=== PATIENT | female | born 1965 | race Hispanic/Latino ===

== ENCOUNTER 2017-09-26 14:56 | Emergency (ER) | payer SELFPAY ==
[2017-09-26 15:22] LABS: #Eosinphils 0.3 thou/uL (0.0-0.7); #Lymphocytes 2.1 thou/uL (1.20-3.40); #Monocytes 0.7 thou/uL (0.11-0.59); #Neutrophils 7.2 thou/uL (1.40-6.50); %Basophils 0.5 % (0.0-1.0); %Eosinophils 2.7 % (0.0-10.0); %Lymphocytes 20.2 % (21.0-51.0); %Monocytes 6.5 % (0.0-10.0); Hematocrit 49.4 % (36.0-47.0); Mean Platelet Volume 8.4 fL (7.4-10.4); Red Blood Cell (RBC) Count 5.33 mill/uL (4.20-5.40); White Blood Cell (WBC) Count 10.2 thou/uL (4.8-10.8)
[2017-09-26 15:34] LABS: ALT (SGPT) 36 U/L (8-55); AST (SGOT) 29 U/L (5-34); Alkaline Phosphatase 99 U/L (40-150); Anion Gap 13 mmol/L (10-20); BUN (Urea Nitrogen) 17 mg/dL (9.8-20.1); Bilirubin, Total 0.8 mg/dL (0.2-1.2); CK (CPK) 159 U/L (29-168); Calc. Creatinine Clearance 0 mL/min (70-130); Calcium 9.4 mg/dL (7.8-10.44); Carbon Dioxide 26 mmol/L (22-29); Chloride 105 mmol/L (98-107); Estimated GFR-MDRD 85; Globulin 3.4 g/dL (2.4-3.5); Protein, Total 7.4 g/dL (6.0-8.3)
[2017-09-26 15:37] LABS: Troponin I Less than 0.010 ng/mL (< 0.028)
--- NOTE | 2017-09-26 15:52 | RAD ---
PORTABLE UPRIGHT FRONTAL CHEST RADIOGRAPH: Date: 09-26-17 Comparison: 10-16-14 History: Epigastric pain and chest pain. FINDINGS: Lungs are clear. Heart and mediastinal contours are unremarkable. There is elevation of the right hem idiaphragm. IMPRESSION: No acute findings. POS: [facility]
[2017-09-26] MEDS ORDERED: Famotidine/PF 20 mg/2ml Vial ONE (16:07)
[2017-09-26] MEDS ORDERED: Mag-Al 1200 mg/1200 mg/30 ML UDCUP ONE (16:07)
[2017-09-26] MEDS ORDERED: Lidocaine Viscous Sol 2% 15 ml UD Cup ONE (16:07)
[2017-09-26] MEDS ORDERED: Ondansetron HCl/PF 4 MG/2 ML Vial ONE (17:39)
== END 2017-09-26 19:10 | disposition home or self-care (01) ==
LOC: ERS 14:56
DX: R11.2 Nausea with vomiting, unspecified (principal); R19.7 Diarrhea, unspecified; K21.9 Gastro-esophageal reflux disease without esophagitis; G51.0 Bell's palsy
CPT/HCPCS: 71010; 80053; 82550; 82553; 83690; 84484; 85025; 93005; 94760; 96361; 96372; 96374; 96375; J2405; S0028

== ENCOUNTER 2018-05-17 11:06 | Emergency (ER) | payer SELFPAY ==
--- NOTE | 2018-05-17 11:37 | RAD ---
ONE VIEW CHEST: History: Epigastric pain. Vomiting and heartburn. Comparison: 09-26-17 FINDINGS: One view chest. Normal cardiac silhouette. Lungs and pleural spaces are clear. No pneumothorax or oss eous abnormalities. IMPRESSION: No acute cardiopulmonary process. POS: [facility]
[2018-05-17 11:42] LABS: #Basophils 0.1 thou/uL (0.0-0.2); #Eosinphils 0.3 thou/uL (0.0-0.7); #Lymphocytes 2.5 thou/uL (1.20-3.40); #Monocytes 0.6 thou/uL (0.11-0.59); #Neutrophils 6.2 thou/uL (1.40-6.50); %Basophils 0.7 % (0.0-1.0); %Eosinophils 3.3 % (0.0-10.0); %Lymphocytes 25.6 % (21.0-51.0); %Monocytes 5.7 % (0.0-10.0); %Neutrophils 64.6 % (42.0-75.0); Mean Corpuscular HGB CONC 32.6 g/dL (32.0-36.0); Mean Corpuscular Hemoglobin 28.8 pg (27.0-31.0); Mean Corpuscular Volume 88.4 fL (78.0-98.0); Mean Platelet Volume 8.8 fL (7.4-10.4); Platelet Count 216 thou/uL (130-400); RBC Distribution Width 11.7 % (11.5-14.5); Red Blood Cell (RBC) Count 5.22 mill/uL (4.20-5.40); White Blood Cell (WBC) Count 9.6 thou/uL (4.8-10.8)
[2018-05-17 11:52] LABS: Bilirubin Negative (Negative); Blood, Urine Trace (Negative); Glucose, Urine (Dipstick) Negative (Negative); Leukocyte Negative (Negative); Nitrite Negative (Negative); Protein, Urine (Dipstick) Negative (Neg-Trace); Urobilinogen 0.2 mg/dL (0.2-1.0)
[2018-05-17 11:56] LABS: Clarity CLEAR (Clear); Specific Gravity, Urine 1.004 (1.002-1.036)
[2018-05-17 12:07] LABS: Bacteria/HPF None Seen HPF (None Seen); Hyaline Casts/LPF NONE SEEN LPF (0-3 Hyaline); RBC/HPF None Seen HPF (0-3); Squamous Epithelial 0-3 HPF (0-3); WBC/HPF None Seen HPF (0-3)
[2018-05-17 12:10] LABS: ALT (SGPT) 49 U/L (8-55); AST (SGOT) 40 U/L (5-34); Albumin 4.2 g/dL (3.5-5.0); Alkaline Phosphatase 96 U/L (40-150); Anion Gap 11 mmol/L (10-20); BUN (Urea Nitrogen) 16 mg/dL (9.8-20.1); Bilirubin, Total 0.8 mg/dL (0.2-1.2); CK (CPK) 106 U/L (29-168); CKMB 1.1 ng/mL (0-6.6); Calc. Creatinine Clearance 0 mL/min (70-130); Calcium 9.5 mg/dL (7.8-10.44); Carbon Dioxide 27 mmol/L (22-29); Chloride 104 mmol/L (98-107); Estimated GFR-MDRD 81; Globulin 3.7 g/dL (2.4-3.5); Glucose 102 mg/dL (70-105); Lipase 35 U/L (8-78); Potassium 3.5 mmol/L (3.5-5.1); Protein, Total 7.9 g/dL (6.0-8.3); Sodium 138 mmol/L (136-145); Troponin I Less than 0.010 ng/mL (< 0.028)
[2018-05-17] MEDS ORDERED: ISOVUE-370 76%-LOCM 1 ML ONE (12:14)
[2018-05-17] MEDS ORDERED: Mag-Al 1200 mg/1200 mg/30 ML UDCUP ONE (12:29)
[2018-05-17] MEDS ORDERED: Lidocaine Viscous Sol 2% 15 ml UD Cup ONE (12:29)
[2018-05-17] MEDS ORDERED: Ondansetron ODT 4 MG TAB ONE (12:29)
--- NOTE | 2018-05-17 14:12 | CT ---
CT AORTOGRAM CHEST AND ABDOMEN: Multiple axial tomograms were obtained through the aortic arch extending through the aortic bifurcati on with arterial phase contrast following aortogram protocol with multiplanar reconstruction and 3D p ost processing. INDICATION: Abdominal pain, nausea and vomiting. FINDINGS: The thoracic and abdominal aorta appear unremarkable. There is no evidence of dissection. No eviden ce of aneurysmal dilatation. Very mild atherosclerotic changes seen in the lower abdominal aorta. A ortic branches including celiac artery, superior mesenteric artery, and renal arteries appear unremar kable with no evidence of stenosis. The visualized lung lott appear clear. No infiltrate or effusion. Mediastinum unremarkable. Liver, spleen, pancreas, and kidneys unremarkable. There is a 4 cm cyst arising from the superior ri ght kidney. Visualized bowel loops unremarkable. IMPRESSION: 1. Unremarkable thoracic and abdominal aorta with no evidence of dissection. 2. Large renal cyst is incidentally noted. POS: [facility]
== END 2018-05-17 14:15 | disposition home or self-care (01) ==
LOC: ERS 11:06
DX: K29.70 Gastritis, unspecified, without bleeding (principal); Z87.442 Personal history of urinary calculi; Z79.899 Other long term (current) drug therapy
CPT/HCPCS: 71045; 71275; 80053; 81003; 81015; 82553; 83690; 83880; 84484; 85025; 93005; Q0162

== ENCOUNTER 2021-01-21 21:24 | Emergency (ER) | payer SELFPAY ==
[2021-01-21 21:50] LABS: #Basophils 0.1 thou/uL (0.0-0.2); #Eosinphils 0.4 thou/uL (0.0-0.7); #Lymphocytes 3.7 thou/uL (1.20-3.40); #Monocytes 1.1 thou/uL (0.11-0.59); #Neutrophils 6.6 thou/uL (1.40-6.50); %Basophils 0.4 % (0.0-1.0); %Eosinophils 3.6 % (0.0-10.0); %Lymphocytes 30.9 % (21.0-51.0); %Monocytes 9.3 % (0.0-10.0); %Neutrophils 55.8 % (42.0-75.0); Hemoglobin 14.8 g/dL (12.0-16.0); Mean Corpuscular HGB CONC 32.8 g/dL (32.0-36.0); Mean Corpuscular Hemoglobin 30.1 pg (27.0-31.0); Mean Corpuscular Volume 91.8 fL (78.0-98.0); Mean Platelet Volume 8.9 fL (7.4-10.4); Platelet Count 234 thou/uL (130-400); RBC Distribution Width 11.7 % (11.5-14.5); Red Blood Cell (RBC) Count 4.91 mill/uL (4.20-5.40); White Blood Cell (WBC) Count 11.9 thou/uL (4.8-10.8)
[2021-01-21 22:14] LABS: ALT (SGPT) 51 U/L (8-55); AST (SGOT) 37 U/L (5-34); Alkaline Phosphatase 102 U/L (40-110); Anion Gap 14 mmol/L (10-20); BUN (Urea Nitrogen) 16 mg/dL (9.8-20.1); Bilirubin, Total 0.4 mg/dL (0.2-1.2); Calc. Creatinine Clearance 0 mL/min (70-130); Calcium 9.2 mg/dL (7.8-10.44); Carbon Dioxide 24 mmol/L (22-29); Chloride 107 mmol/L (98-107); Globulin 3.7 g/dL (2.4-3.5); Glucose 86 mg/dL (70-105); Protein, Total 7.7 g/dL (6.0-8.3); Sodium 141 mmol/L (136-145)
[2021-01-21] MEDS ORDERED: Lidocaine Viscous Sol 2% 15 ml UD Cup ONE (23:29)
[2021-01-21] MEDS ORDERED: Mag-Al 1200 mg/1200 mg/30 ML UDCUP ONE (23:29)
== END 2021-01-21 23:47 | disposition home or self-care (01) ==
LOC: ERS 21:24
DX: R07.9 Chest pain, unspecified (principal); I10 Essential (primary) hypertension; Z79.899 Other long term (current) drug therapy
CPT/HCPCS: 36415; 71045; 80053; 83690; 84484; 85025; 93005

== ENCOUNTER 2021-04-29 15:59 | Emergency (ER) | payer SELFPAY ==
[2021-04-29 16:46] LABS: #Basophils 0.1 thou/uL (0.0-0.2); #Eosinphils 0.4 thou/uL (0.0-0.7); #Lymphocytes 2.7 thou/uL (1.20-3.40); #Monocytes 0.8 thou/uL (0.11-0.59); %Basophils 0.7 % (0.0-1.0); %Eosinophils 4.4 % (0.0-10.0); %Lymphocytes 27.3 % (21.0-51.0); %Monocytes 8.2 % (0.0-10.0); %Neutrophils 59.4 % (42.0-75.0); Mean Corpuscular HGB CONC 34.3 g/dL (32.0-36.0); Mean Corpuscular Hemoglobin 31.7 pg (27.0-31.0); Mean Corpuscular Volume 92.4 fL (78.0-98.0); Platelet Count 211 thou/uL (130-400); RBC Distribution Width 11.8 % (11.5-14.5); Red Blood Cell (RBC) Count 4.72 mill/uL (4.20-5.40)
[2021-04-29 17:07] LABS: ALT (SGPT) 38 U/L (8-55); AST (SGOT) 29 U/L (5-34); Alkaline Phosphatase 78 U/L (40-110); Anion Gap 12 mmol/L (10-20); BUN (Urea Nitrogen) 19 mg/dL (9.8-20.1); Bilirubin, Total 0.4 mg/dL (0.2-1.2); Calc. Creatinine Clearance 0 mL/min (70-130); Calcium 9.2 mg/dL (7.8-10.44); Carbon Dioxide 25 mmol/L (22-29); Chloride 107 mmol/L (98-107); Globulin 3.7 g/dL (2.4-3.5); Glucose 96 mg/dL (70-105); Protein, Total 7.7 g/dL (6.0-8.3); Sodium 140 mmol/L (136-145)
[2021-04-29 17:24] LABS: Bacteria/HPF None Seen HPF (None Seen); Bilirubin Negative (Negative); Blood, Urine 2+ (Negative); Clarity Clear (Clear); Glucose, Urine (Dipstick) Normal (Negative); Ketone, Urine Negative (Negative); Leukocyte Negative Leu/uL (Negative); Nitrite Negative (Negative); Protein, Urine (Dipstick) Negative (Neg-Trace); RBC/HPF 21-50 HPF (0-3); Specific Gravity, Urine 1.008 (1.002-1.036); Squamous Epithelial None Seen HPF (0-3); Urobilinogen Normal mg/dL (Less than 2); WBC/HPF 0-3 HPF (0-3)
[2021-04-29] MEDS ORDERED: Ketorolac Tromethamine 30 MG/ML VIAL ONE (17:53)
== END 2021-04-29 19:15 | disposition home or self-care (01) ==
LOC: ERS 15:59
DX: N20.0 Calculus of kidney (principal); I10 Essential (primary) hypertension; G51.0 Bell's palsy; Z79.899 Other long term (current) drug therapy
CPT/HCPCS: 36415; 74176; 80053; 81003; 81015; 85025; 96374; J1885

== ENCOUNTER 2021-12-27 17:22 | Emergency (ER) | payer SELFPAY ==
[2021-12-27 17:55] LABS: #Eosinphils 0.4 thou/uL (0.0-0.7); #Lymphocytes 3.1 thou/uL (1.20-3.40); #Monocytes 0.7 thou/uL (0.11-0.59); #Neutrophils 6.2 thou/uL (1.40-6.50); %Basophils 0.1 % (0.0-1.0); %Eosinophils 3.5 % (0.0-10.0); %Monocytes 6.5 % (0.0-10.0); %Neutrophils 59.9 % (42.0-75.0); Hemoglobin 15.3 g/dL (12.0-16.0); Mean Corpuscular HGB CONC 33.1 g/dL (32.0-36.0); Mean Corpuscular Hemoglobin 31.2 pg (27.0-31.0); Mean Corpuscular Volume 94.2 fL (78.0-98.0); Mean Platelet Volume 8.3 fL (7.4-10.4); Platelet Count 232 thou/uL (130-400); RBC Distribution Width 11.5 % (11.5-14.5); White Blood Cell (WBC) Count 10.3 thou/uL (4.8-10.8)
[2021-12-27 18:19] LABS: Anion Gap 11 mmol/L (10-20); BUN (Urea Nitrogen) 23 mg/dL (9.8-20.1); Calc. Creatinine Clearance 0 mL/min (70-130); Calcium 9.5 mg/dL (7.8-10.44); Carbon Dioxide 28 mmol/L (22-29); Chloride 104 mmol/L (98-107); Glucose 77 mg/dL (70-105); Lipase 30 U/L (8-78); Potassium 3.9 mmol/L (3.5-5.1); Sodium 139 mmol/L (136-145)
[2021-12-27] MEDS ORDERED: Mag-Al 1200 mg/1200 mg/30 ML UDCUP ONE (19:09)
[2021-12-27] MEDS ORDERED: Lidocaine Viscous Sol 2% 15 ml UD Cup ONE (19:09)
[2021-12-27 19:49] LABS: Bacteria/HPF None Seen HPF (None Seen); Bilirubin Negative (Negative); Blood, Urine Negative (Negative); Clarity Clear (Clear); Glucose, Urine (Dipstick) Normal (Negative); Ketone, Urine 20 mg/dL (Negative); Leukocyte 75 Leu/uL (Negative); Nitrite Negative (Negative); Protein, Urine (Dipstick) 10 mg/dL (Neg-Trace); RBC/HPF 0-3 HPF (0-3); Specific Gravity, Urine 1.029 (1.002-1.036); Squamous Epithelial 0-3 HPF (0-3); WBC/HPF 0-3 HPF (0-3); pH, Urine 5.5 (5.0-9.0)
== END 2021-12-27 19:38 | disposition home or self-care (01) ==
LOC: ERS 17:22
DX: R10.13 Epigastric pain (principal); I10 Essential (primary) hypertension; Z79.899 Other long term (current) drug therapy
CPT/HCPCS: 36415; 80048; 81003; 81015; 83690; 84484; 85025; 93005

== ENCOUNTER 2022-01-12 09:19 | Outpatient (CLI) | payer OTHER ==
[2022-01-12] MEDS ORDERED: Magnevist 469MG/ML 20 ML VIAL ONE (11:03)
== END 2022-01-12 09:20 | disposition home or self-care (01) ==
LOC: MRI 09:19
PROVIDERS: ATTEND Internal Medicine Gastroenterology
DX: R10.11 Right upper quadrant pain (principal); K75.81 Nonalcoholic steatohepatitis (NASH); R14.0 Abdominal distension (gaseous); Z86.010 Personal history of colon polyps; K76.0 Fatty (change of) liver, not elsewhere classified; N28.1 Cyst of kidney, acquired
CPT/HCPCS: 74183

== ENCOUNTER 2022-05-01 20:07 | Emergency (ER) | payer SELFPAY ==
[2022-05-01 20:34] LABS: #Basophils 0.1 thou/uL (0.0-0.2); #Eosinphils 0.5 thou/uL (0.0-0.7); #Lymphocytes 3.8 thou/uL (1.20-3.40); #Monocytes 1.1 thou/uL (0.11-0.59); #Neutrophils 6.4 thou/uL (1.40-6.50); %Basophils 0.5 % (0.0-1.0); %Lymphocytes 32.2 % (21.0-51.0); %Monocytes 9.3 % (0.0-10.0); Hemoglobin 15.4 g/dL (12.0-16.0); Mean Corpuscular Hemoglobin 31.1 pg (27.0-31.0); Mean Corpuscular Volume 94.3 fL (78.0-98.0); Mean Platelet Volume 8.6 fL (7.4-10.4); Platelet Count 229 thou/uL (130-400); RBC Distribution Width 11.9 % (11.5-14.5); Red Blood Cell (RBC) Count 4.95 mill/uL (4.20-5.40); White Blood Cell (WBC) Count 11.8 thou/uL (4.8-10.8)
[2022-05-01] MEDS ORDERED: methylPREDNISolone Sod Succ/PF 125 MG/2 ML VIAL ONE (20:44)
[2022-05-01] MEDS ORDERED: Ketorolac Tromethamine 30 MG/ML VIAL ONE (20:44)
[2022-05-01] MEDS ORDERED: Metoclopramide HCl 10 MG/2 ML VIAL ONE (20:44)
[2022-05-01] MEDS ORDERED: diphenhydrAMINE 50 MG/ML VIAL ONE (20:44)
[2022-05-01 20:53] LABS: Prothrombin Time 13.1 sec (12.0-14.7)
[2022-05-01 21:10] LABS: ALT (SGPT) 44 U/L (8-55); AST (SGOT) 38 U/L (5-34); Albumin 3.9 g/dL (3.5-5.0); Alkaline Phosphatase 105 U/L (40-110); Anion Gap 14 mmol/L (10-20); BUN (Urea Nitrogen) 22 mg/dL (9.8-20.1); Bilirubin, Total 0.6 mg/dL (0.2-1.2); Calc. Creatinine Clearance 0 mL/min (70-130); Calcium 9.2 mg/dL (7.8-10.44); Carbon Dioxide 22 mmol/L (22-29); Chloride 107 mmol/L (98-107); Globulin 4.1 g/dL (2.4-3.5); Glucose 101 mg/dL (70-105); Sodium 139 mmol/L (136-145)
== END 2022-05-01 21:10 | disposition home or self-care (01) ==
LOC: ERS 20:07
DX: G43.809 Other migraine, not intractable, without status migrainosus (principal); I10 Essential (primary) hypertension; Z87.442 Personal history of urinary calculi; Z79.899 Other long term (current) drug therapy
CPT/HCPCS: 70450; 80053; 84484; 85025; 85610; 85730; 93005; 94760; 96365; 96375; J1200; J1885; J2765; J2930

== ENCOUNTER 2023-10-15 16:40 | Emergency (ER) | payer BC ==
[2023-10-15] MEDS ORDERED: Ketorolac Tromethamine 30 MG/ML VIAL ONE (18:34)
[2023-10-15 18:41] LABS: Bacteria/HPF None Seen HPF (None Seen); Bilirubin Negative (Negative); Blood, Urine 2+ (Negative); CAUTI Indications for Culture Pelvic or flank pain; Calcium Oxalate Crystals Rare HPF (None Seen); Clarity Clear (Clear); Glucose, Urine (Dipstick) Normal (Negative); Ketone, Urine Negative (Negative); Leukocyte Negative Leu/uL (Negative); Nitrite Negative (Negative); Protein, Urine (Dipstick) Negative (Neg-Trace); RBC/HPF Greater than 50 HPF (0-3); Squamous Epithelial 0-3 HPF (0-3); Urobilinogen Normal mg/dL (Less than 2); WBC/HPF 0-3 HPF (0-3); pH, Urine 5.5 (5.0-9.0)
[2023-10-15 18:42] LABS: Urine Culture Reflex No No
[2023-10-15 19:20] LABS: #Eosinphils 0.3 thou/uL (0.0-0.7); #Monocytes 0.9 thou/uL (0.11-0.59); #Neutrophils 7.4 thou/uL (1.40-6.50); %Basophils 0.3 % (0.0-1.0); %Eosinophils 2.8 % (0.0-10.0); %Lymphocytes 27.4 % (21.0-51.0); %Monocytes 7.8 % (0.0-10.0); %Neutrophils 61.3 % (42.0-75.0); Hematocrit 47.1 % (36.0-47.0); Hemoglobin 15.1 g/dL (12.0-16.0); Mean Corpuscular HGB CONC 32.1 g/dL (32.0-36.0); Mean Corpuscular Hemoglobin 30.4 pg (27.0-31.0); Mean Corpuscular Volume 94.8 fl (78.0-98.0); Mean Platelet Volume 10.9 fL (7.4-10.4); Platelet Count 247 10x3/uL (130-400); RBC Distribution Width 12.8 % (11.5-14.5); Red Blood Cell (RBC) Count 4.97 mill/uL (4.20-5.40); White Blood Cell (WBC) Count 12.1 10x3/uL (4.8-10.8)
[2023-10-15 19:50] LABS: ALT (SGPT) 34 U/L (8-55); AST (SGOT) 28 U/L (5-34); Albumin 3.8 g/dL (3.5-5.0); Alkaline Phosphatase 86 U/L (40-110); Anion Gap 12 mmol/L (10-20); BUN (Urea Nitrogen) 22 mg/dL (9.8-20.1); Bilirubin, Total 0.5 mg/dL (0.2-1.2); Calc. Creatinine Clearance 0 mL/min (70-130); Calcium 9.4 mg/dL (7.8-10.44); Carbon Dioxide 24 mmol/L (22-29); Chloride 110 mmol/L (98-107); Estimated GFR 96; Globulin 3.9 g/dL (2.4-3.5); Glucose 77 mg/dL (70-105); Potassium 4.2 mmol/L (3.5-5.1); Protein, Total 7.7 g/dL (6.0-8.3); Sodium 142 mmol/L (136-145)
== END 2023-10-15 20:53 | disposition home or self-care (01) ==
LOC: ERS 16:40
DX: M54.50 Low back pain, unspecified (principal); K59.00 Constipation, unspecified; I10 Essential (primary) hypertension; Z79.899 Other long term (current) drug therapy
CPT/HCPCS: 36415; 74176; 80053; 81001; 85025; 93005; 96372; J1885

== ENCOUNTER 2024-03-18 08:57 | Outpatient (CLI) | payer OTHER | END 2024-03-18 08:58 | disposition home or self-care (01) | LOC: BICMAMMO 08:57 | PROVIDERS: ATTEND Nurse Practitioner Women's Health | DX: Z12.31 Encounter for screening mammogram for malignant neoplasm of breast (principal); Z80.3 Family history of malignant neoplasm of breast; Z91.89 Other specified personal risk factors, not elsewhere classified | CPT/HCPCS: 77063; 77067 ==

== ENCOUNTER 2024-11-13 12:14 | Outpatient (CLI) | payer OTHER | END 2024-11-13 12:15 | disposition home or self-care (01) | LOC: CT 12:14 | PROVIDERS: ATTEND Family Medicine | DX: R31.29 Other microscopic hematuria (principal); N20.0 Calculus of kidney; K76.0 Fatty (change of) liver, not elsewhere classified; R14.0 Abdominal distension (gaseous); N28.9 Disorder of kidney and ureter, unspecified; Z87.442 Personal history of urinary calculi | CPT/HCPCS: 74176 ==

== ENCOUNTER 2025-07-26 03:32 | Emergency (ER) | payer OTHER ==
[2025-07-26] MEDS ORDERED: Ketorolac Tromethamine 30 MG (1 mL) VIAL ONE (04:09)
[2025-07-26] MEDS ORDERED: Ondansetron PF 4 MG/2 ML Vial ONE (04:09)
[2025-07-26 04:28] LABS: #Basophils Less than 0.03 10x3/uL (0.0-0.2); #Eosinophils 0.55 10x3/uL (0.0-0.7); #Monocytes 0.82 10x3/uL (0.11-0.59); #Neutrophils 5.59 10x3/uL (1.40-6.50); %Basophils 0.2 % (0.0-1.0); %Eosinophils 5.5 % (0.0-10.0); %Lymphocytes 29.3 % (21.0-51.0); %Monocytes 8.3 % (0.0-10.0); %Neutrophils 56.4 % (42.0-75.0); Hematocrit 45.6 % (36.0-47.0); Hemoglobin 15.1 g/dL (12.0-16.0); Mean Corpuscular Hemoglobin 29.8 pg (27.0-31.0); Mean Corpuscular Volume 90.1 fL (78.0-98.0); Platelet Count 206 10x3/uL (130-400); Red Blood Cell (RBC) Count 5.06 mill/uL (4.20-5.40); White Blood Cell (WBC) Count 9.91 10x3/uL (4.8-10.8)
[2025-07-26 04:41] LABS: BHCG - Serum Negative (NEGATIVE); Pregs Control Background? CLEAR/WHITE (CLR/WHITE); Pregs Control Bar Appear? YES (CONTROL BAR)
[2025-07-26 04:50] LABS: ALT (SGPT) 58 U/L (Less than 34); AST (SGOT) 48 U/L (11-34); Albumin 3.6 g/dL (3.1-4.5); Alkaline Phosphatase 114 U/L (40-110); Anion Gap 14 mmol/L (10-20); BUN (Urea Nitrogen) 24 mg/dL (9.8-20.1); Bilirubin, Total 0.5 mg/dL (0.3-1.2); Calc. Creatinine Clearance 0 mL/min (70-130); Calcium 8.9 mg/dL (7.8-10.44); Carbon Dioxide 20 mmol/L (22-29); Chloride 109 mmol/L (98-107); Globulin 3.8 g/dL (2.4-3.5); Glucose 107 mg/dL (70-105); Lipase 117 U/L (8-78); Potassium 4.1 mmol/L (3.5-5.1); Sodium 139 mmol/L (136-145)
[2025-07-26 05:12] LABS: Bacteria/HPF None Seen HPF (None Seen); CAUTI Indications for Culture Pelvic or flank pain; Glucose, Urine (Dipstick) Normal (Negative); Leukocyte Negative Leu/uL (Negative); Protein, Urine (Dipstick) Negative (Neg-Trace); RBC/HPF 0-3 HPF (0-3); Specific Gravity, Urine 1.017 (1.002-1.036); WBC/HPF 0-3 HPF (0-3)
[2025-07-26 05:17] LABS: Urine Culture Reflex No No
== END 2025-07-26 06:54 | disposition home or self-care (01) ==
LOC: ERS 03:32
DX: R10.9 Unspecified abdominal pain (principal); I10 Essential (primary) hypertension; R94.5 Abnormal results of liver function studies; Z55.6 Problems related to health literacy; Z79.899 Other long term (current) drug therapy
CPT/HCPCS: 74177; 80053; 81001; 83605; 83690; 84484; 84703; 85025; 93005; 96374; 96375; J1885; J2405; J3010

== ENCOUNTER 2025-08-18 08:59 | Outpatient (CLI) | payer OTHER | END 2025-08-18 09:00 | disposition home or self-care (01) | LOC: ULT 08:59 | PROVIDERS: ATTEND Urology | DX: N20.0 Calculus of kidney (principal); N28.1 Cyst of kidney, acquired; K76.0 Fatty (change of) liver, not elsewhere classified | CPT/HCPCS: 74018; 76770 ==

== ENCOUNTER 2025-10-24 12:10 | Emergency (ER) | payer OTHER ==
[2025-10-24 12:54] LABS: #Basophils 0.03 10x3/uL (0.0-0.2); #Eosinophils 0.39 10x3/uL (0.0-0.7); #Monocytes 0.71 10x3/uL (0.11-0.59); #Neutrophils 4.69 10x3/uL (1.40-6.50); %Basophils 0.4 % (0.0-1.0); %Eosinophils 4.6 % (0.0-10.0); %Lymphocytes 31.4 % (21.0-51.0); %Monocytes 8.3 % (0.0-10.0); %Neutrophils 55.1 % (42.0-75.0); Hematocrit 46.4 % (36.0-47.0); Hemoglobin 15.2 g/dL (12.0-16.0); Mean Corpuscular Hemoglobin 29.3 pg (27.0-31.0); Mean Corpuscular Volume 89.4 fL (78.0-98.0); Platelet Count 207 10x3/uL (130-400); Red Blood Cell (RBC) Count 5.19 mill/uL (4.20-5.40); White Blood Cell (WBC) Count 8.51 10x3/uL (4.8-10.8)
[2025-10-24 13:10] LABS: ALT (SGPT) 70 U/L (Less than 34); AST (SGOT) 54 U/L (11-34); Albumin 3.8 g/dL (3.1-4.5); Alkaline Phosphatase 99 U/L (40-110); Anion Gap 15 mmol/L (10-20); BUN (Urea Nitrogen) 16 mg/dL (9.8-20.1); Bilirubin, Total 0.6 mg/dL (0.3-1.2); Calc. Creatinine Clearance 0 mL/min (70-130); Calcium 9.2 mg/dL (7.8-10.44); Carbon Dioxide 21 mmol/L (22-29); Chloride 108 mmol/L (98-107); Globulin 3.9 g/dL (2.4-3.5); Glucose 80 mg/dL (70-105); Potassium 4.3 mmol/L (3.5-5.1); Sodium 140 mmol/L (136-145)
[2025-10-24] MEDS ORDERED: Acetaminophen 500 MG TAB ONE (13:34)
[2025-10-24] MEDS ORDERED: Iopamidol 370 76% 100 ML VIAL ONE (14:48)
== END 2025-10-24 15:37 | disposition home or self-care (01) ==
LOC: ERS 12:10
DX: R42 Dizziness and giddiness (principal); H66.92 Otitis media, unspecified, left ear; H72.92 Unspecified perforation of tympanic membrane, left ear; I10 Essential (primary) hypertension; R29.700 NIHSS score 0; Z79.899 Other long term (current) drug therapy; Z55.6 Problems related to health literacy
CPT/HCPCS: 70496; 70498; 80053; 85025; 93005; Q9967